=== PATIENT | female | born 1960 | race Caucasian/White ===

== ENCOUNTER → 2024-03-30 14:36 | Outpatient (REF) | payer BC, SELFPAY | LOC: HWRCS 14:36 | PROVIDERS: ATTENDING PHYSICIAN Internal Medicine Cardiovascular Disease; FAMILY PHYSICIAN Internal Medicine | DX: R06.02 Shortness of breath (principal) | CPT/HCPCS: 93306 ==

== ENCOUNTER → 2024-04-16 07:17 | Outpatient (REF) | payer BC, SELFPAY ==
[2024-04-16] MEDS: LEXISCAN 0.4 MG IV (09:57)
== END ==
LOC: RCS 07:17
PROVIDERS: ATTENDING PHYSICIAN Internal Medicine Cardiovascular Disease; FAMILY PHYSICIAN Internal Medicine
DX: R06.02 Shortness of breath (principal)
CPT/HCPCS: 78452; 93017; A9500; J2785

== ENCOUNTER → 2024-04-26 17:34 | Outpatient (REF) | payer BC, SELFPAY | LOC: MRI 17:34 | PROVIDERS: ATTENDING PHYSICIAN Internal Medicine; FAMILY PHYSICIAN Internal Medicine | DX: K76.0 Fatty (change of) liver, not elsewhere classified (principal); K86.2 Cyst of pancreas | CPT/HCPCS: 74183; A9575 ==

== ENCOUNTER → 2025-09-23 13:08 | Outpatient (REF) | payer BC, SELFPAY | LOC: PAVMRI 13:08 | PROVIDERS: ATTENDING PHYSICIAN Internal Medicine; FAMILY PHYSICIAN Internal Medicine | DX: K86.2 Cyst of pancreas (principal) | CPT/HCPCS: 74183; A9575 ==